=== PATIENT | female | born 1995 | race Two or more races ===

== ENCOUNTER 2024-01-31 18:19 | Emergency (ER) | payer OTHER ==
[~2024-01-31] VITALS: Ht 175.3 cm; Wt 108.9 kg
[2024-01-31 18:51] VITALS: BP 138/93; PULSE 108; RESP 16; TEMP 99.2; O2SAT 97
[2024-01-31 19:13] LABS: Urine Amorphous Crystal FEW /hpf (None Seen); Urine Bacteria FEW /hpf (None Seen); Urine Blood Negative /uL (Negative); Urine Clarity Turbid (Clear); Urine Color Light-Yellow (Yellow); Urine Protein, UAD Negative (Negative); Urine Specific Gravity 1.021 (1.001-1.035); Urine Urobilinogen 2 mg/dL (Negative); Urine WBC 1 /hpf (0 - 5)
[2024-01-31] MEDS ORDERED: ACET500T58 PO (20:32)
== END 2024-01-31 22:08 | disposition home or self-care (01) ==
LOC: ER 18:19
DX: O26.891 Other specified pregnancy related conditions, first trimester (principal); M54.41 Lumbago with sciatica, right side; Z3A.01 Less than 8 weeks gestation of pregnancy; Z79.899 Other long term (current) drug therapy
CPT/HCPCS: 81001; 81025